=== PATIENT | female | born 1950 | race Caucasian/White ===

== ENCOUNTER 2020-08-20 13:13 | Emergency (ER) | payer MEDICARE ==
[~2020-08-20] VITALS: Ht 154.9 cm; Wt 56.8 kg
[2020-08-20 13:28] VITALS: BP 122/53
[2020-08-20 14:18] LABS: GLUCOSE,POINT OF CARE 135 MG/DL (70-110)
[2020-08-20 14:36] LABS: BASOPHILS % (AUTO) 0.8 % (0.0-2.0); EOSINOPHILS % (AUTO) 2.4 % (1.0-6.0); HEMATOCRIT 41.9 % (36-46); HEMOGLOBIN 14.3 g/dL (12.0-16.0); LYMPHOCYTES # (AUTO) 3.3 K/uL (1.0-4.8); LYMPHOCYTES % (AUTO) 35.5 % (22.0-44.0); MEAN CORPUSCULAR HEMOGLOBIN 32.5 pg (26.0-34.0); MEAN CORPUSCULAR HGB CONC 34.1 G/dL (31.0-37.0); MEAN CORPUSCULAR VOLUME 95 fL (80-100); MONOCYTES # (AUTO) 0.8 K/uL (0.1-1.0); MONOCYTES % (AUTO) 9.2 % (2.0-9.0); NEUTROPHILS # (AUTO) 4.8 K/uL (1.8-7.7); NEUTROPHILS % (AUTO) 52.1 % (40.0-70.0); PLATELET COUNT (AUTO) 259 K/uL (150-450); RED BLOOD CELL COUNT(AUTO) 4.39 MIL/uL (4.00-5.20); RED CELL DISTRIBUTION WIDTH 13.2 % (11.5-14.5)
[2020-08-20 14:54] LABS: CALCIUM, TOTAL 9.8 mg/dL (8.8-10.5); CREATININE 1.03 mg/dL (0.60-1.30); POTASSIUM 4.3 mmol/L (3.5-5.1)
[2020-08-20 15:01] LABS: ALBUMIN 3.2 g/dL (3.4-5.0); BILIRUBIN,TOTAL 0.3 mg/dL (0.1-1.0); TOTAL PROTEIN, SERUM 7.8 g/dL (6.4-8.2)
== END 2020-08-20 15:55 | disposition home or self-care (01) ==
LOC: EMS 13:55
DX: E86.0 Dehydration (principal); E11.9 Type 2 diabetes mellitus without complications